=== PATIENT | male | born 1955 | race Caucasian/White ===

== ENCOUNTER 2021-04-08 08:00 | Outpatient (CLI) | payer MEDICARE ==
[2021-04-08 12:05] LABS: CALCIUM 9.2 mg/dL (8.5-10.3); CREATININE 0.9 mg/dL (0.6-1.2); POTASSIUM 4.7 mmol/L (3.5-5.0)
== END 2021-04-08 23:59 ==
LOC: LAB 08:00
PROVIDERS: ATTEND Nurse Practitioner Family
DX: R10.30 Lower abdominal pain, unspecified (principal); N52.9 Male erectile dysfunction, unspecified
CPT/HCPCS: 36415; 80048; 84153

== ENCOUNTER 2021-04-08 11:15 | Outpatient (CLI) | payer MEDICARE ==
[2021-04-08] MEDS ORDERED: IOVERSOL 320 100 ML VIAL IVP ONE ×2 (11:44→13:35)
[2021-04-08] MEDS ORDERED: IOPAMIDOL-300 50 ML VIAL ONE (11:44)
[2021-04-08] MEDS ORDERED: IOPAMIDOL-300 50 ML VIAL PO ONE (13:35)
--- NOTE | 2021-04-08 15:10 | CT Report ---
PROCEDURE: Abdomen/Pelvis W INDICATIONS: ABD PAIN CONTRAST: IV CONTRAST: Optiray 320 ml: 100 PO CONTRAST: Isovue 300 ml50 TECHNIQUE: After the administration of oral and intravenous contrast, 5 mm thick sections acquired from the diap hragms to the symphysis. 5 mm thick coronal and sagittal reformats were acquired. For radiation dos e reduction, the following was used: automated exposure control, adjustment of mA and/or kV accordin g to patient size. COMPARISON: December 21, 2008. FINDINGS: Inferior chest: No focal consolidation, pleural effusion, or pneumothorax. No cardiomegaly or perica rdial effusion. Gallbladder: The gallbladder is distended with a smooth thin wall. Biliary tree: No intra-or extrahepatic biliary ductal dilatation. Liver: Hepatic steatosis. 1.2 cm hypoattenuating lesion in right hepatic lobe, which may reflect a cy st. Spleen: Normal enhancement, size and morphology is seen. Pancreas: No contour deforming mass or inflammatory change. Adrenals: Normal size without masses. Kidneys/ureters: Normal size and morphology. No solid masses or hydronephrosis. Hypoattenuating, venita ical lesions are seen, measuring up to 1.6 cm, most consistent with cysts. Vasculature: No evidence of aneurysm or other significant vascular pathology. Lymphatic system: No pathologic enlargement by size criteria. GI/mesentery: No evidence of intestinal obstruction. Mild wall thickening with infiltrative change of the sigmoid colon (3-64), which may reflect acute diverticulitis versus epiploic appendagitis. Gisselle l appearance of the appendix. Peritoneum/Retroperitoneum: No free intraperitoneal gas or large collection. Urinary bladder: Not well distended. Pelvic organs: Prostatomegaly. Bones/soft tissues: Multifocal degenerative change of the osseous structures. Fat-containing right in guinal hernia with defect measuring approximately 1.2 cm. Fat-containing periumbilical hernia. IMPRESSION: 1.Mild acute sigmoid diverticulosis versus epiploic appendagitis. Reviewed by: Heron William MD on 04/08/2021 3:08 PM PST Approved by: Heron William MD on 04/08/2021 3:08 PM PST Station ID: [id number]
== END 2021-04-08 11:16 | disposition home or self-care (01) ==
LOC: LAB 11:15
PROVIDERS: ATTEND Nurse Practitioner Family
DX: R10.30 Lower abdominal pain, unspecified (principal); N52.9 Male erectile dysfunction, unspecified; R93.3 Abnormal findings on diagnostic imaging of other parts of digestive tract
CPT/HCPCS: 36415; 74177; 80048; 84153; Q9967

== ENCOUNTER 2021-07-24 09:33 | Outpatient (CLI) | payer MEDICARE ==
[2021-07-24] MEDS ORDERED: ALBUTEROL 1 PUFF INH STA (16:12)
== END 2021-07-24 09:34 | disposition home or self-care (01) ==
LOC: RT 09:33
PROVIDERS: ATTEND Nurse Practitioner Family
DX: J44.9 Chronic obstructive pulmonary disease, unspecified (principal)
CPT/HCPCS: 94060; 94727; 94729

== ENCOUNTER 2022-03-21 15:57 | Outpatient (CLI) | payer MEDICARE ==
--- NOTE | 2022-03-21 16:47 | XRAY Report ---
PROCEDURE: Lumbar Spine 2 View INDICATIONS: LOW BACK PAIN TECHNIQUE: 3 views of the lumbar spine were acquired. COMPARISON: CT abdomen pelvis 04/08/2021. FINDINGS: Bones: 5 [id number] vertebrae are present. Dextroscoliosis. Prominent vertebral body osteophyte s. Loss of intervertebral disc space height. Lower lumbar spine facet joint hypertrophy. No vertebral body compression fractures. No suspicious bony lesions. Soft tissues: Overlying bowel gas pattern is normal. No suspicious soft tissue calcifications. Venecia rial vascular calcifications. IMPRESSION: Severe lumbar spine DDD. Reviewed by: Rinku Lyon MD on 03/21/2022 4:45 PM PST Approved by: Rinku Lyon MD on 03/21/2022 4:45 PM PST Station ID: [id number]
--- NOTE | 2022-03-21 16:49 | XRAY Report ---
PROCEDURE: Thoracic Spine 2 View INDICATIONS: COMPRESSION FRACTURE OF THORACIC SPINE TECHNIQUE: 3 views of the thoracic spine were acquired. COMPARISON: CT abdomen pelvis 04/08/2021. FINDINGS: Bones: No fractures or dislocations. No suspicious bony lesions. 12 pairs of ribs are noted, and a ppear intact where visualized. Mild scoliosis. Small vertebral body osteophytes. No compression fract ure is identified. Soft tissues: No paravertebral stripe thickening. IMPRESSION: Mild to moderate degenerative change in the thoracic spine. Reviewed by: Rinku Lyon MD on 03/21/2022 4:48 PM PST Approved by: Rinku Lyon MD on 03/21/2022 4:48 PM PST Station ID: [id number]
--- NOTE | 2022-03-21 16:50 | XRAY Report ---
PROCEDURE: Cervical Spine 2 View INDICATIONS: NECK PAIN TECHNIQUE: 4 view(s) of the cervical spine were acquired. COMPARISON: Same day thoracic spine radiographs. FINDINGS: Bones: No fractures or dislocations to the T1 level. Small vertebral body osteophytes. Uncovertebra l joint hypertrophy. The lateral masses of C1 appear intact on the odontoid view. No suspicious bony lesions. Soft tissues: No prevertebral soft tissue swelling. IMPRESSION: Mild degenerative change in the cervical spine. Reviewed by: Rinku Lyon MD on 03/21/2022 4:49 PM [facility] Approved by: Rinku Lyon MD on 03/21/2022 4:49 PM [facility] Station ID: [id number]
== END 2022-03-21 15:58 | disposition home or self-care (01) ==
LOC: DI.S 15:57
PROVIDERS: ATTEND Nurse Practitioner Family
DX: M47.812 Spondylosis without myelopathy or radiculopathy, cervical region (principal); M47.814 Spondylosis without myelopathy or radiculopathy, thoracic region; M47.816 Spondylosis without myelopathy or radiculopathy, lumbar region; M51.36 Other intervertebral disc degeneration, lumbar region

== ENCOUNTER 2022-05-12 10:26 | Outpatient (CLI) | payer MEDICARE ==
--- NOTE | 2022-05-12 14:00 | CT Report ---
PROCEDURE: Low Dose Lung Cancer Screen INDICATIONS: SMOKER TECHNIQUE: Noncontrast low-dose axial images were acquired from the pulmonary apices to the posterior costophren ic angles. Multiplanar MIP reformats were then reconstructed. For radiation dose reduction, the follo wing was used: automated exposure control, adjustment of mA and/or kV according to patient size. COMPARISON: None. FINDINGS: Image quality: Excellent. Lungs and pleura: No focal consolidation or mass. No nodule or mass. No pneumothorax or pleural effu ever. Mediastinum: Heart size is normal. No pericardial effusion. No mediastinal adenopathy by size crit eria. Thoracic aorta and central pulmonary arteries are normal in size. Esophagus is normal in alexandra henry. No hiatal hernia. Bones and chest wall: No suspicious bony lesions. No vertebral body compression fractures. No axil ivy or supraclavicular adenopathy by size criteria. The thyroid is normal in size and there are no incidental findings. Degenerative changes of the thoracic spine. Abdomen: Visualized upper abdomen solid organs and bowel loops appear normal in the absence of contr ast. There is diverticulosis without evidence of acute diverticulitis. IMPRESSION: 1. No pulmonary nodules or masses. 2. Coronary artery disease. Lung RADS 1. No nodules or definitely benign nodules. Continue annual screening with low-dose chest C T. Reviewed by: gL Paulino on 05/12/2022 12:58 PM [facility] Approved by: Lg Paulino on 05/12/2022 12:58 PM [place] Station ID: [id number]
== END 2022-05-12 10:27 | disposition home or self-care (01) ==
LOC: DI 10:26
PROVIDERS: ATTEND Nurse Practitioner Family
DX: Z12.2 Encounter for screening for malignant neoplasm of respiratory organs (principal); F17.200 Nicotine dependence, unspecified, uncomplicated; I25.10 Atherosclerotic heart disease of native coronary artery without angina pectoris

== ENCOUNTER 2023-06-01 13:45 | Outpatient (CLI) | payer MEDICARE ==
--- NOTE | 2023-06-01 15:36 | CT Report ---
PROCEDURE: Lung Cancer Screen INDICATIONS: LUNG CA SCREENING TECHNIQUE: A CT scan of the chest was performed. Intravenous contrast media was not administered. Images were re corded and evaluated at appropriate window settings. Reformats: axial MIP of the chest, coronal and s agittal. For radiation dose reduction, the following was used: automated exposure control, adjustment of mA and/or kV according to patient size. COMPARISON: 05/12/2022. FINDINGS: Image quality: Excellent. Prior cancer history: None given Lungs and pleura: No pleural effusions. No pneumothorax. Pulmonary nodules are as follows (all descr ibed on series 4) 1. 3 mm pulmonary nodule, right lower lobe, current image 54 and previous image 161 No new or increasing pulmonary nodules. Mediastinum: Heart size is normal. No pericardial effusion. Mild aneurysmal dilatation of the ascendi ng aorta is stable, measuring 4.2 cm on current image 155/12 and measuring 4.2 cm on previous image 3 1/3. No mediastinal adenopathy by size criteria. Chest wall and lower neck: Thyroid is unremarkable. No axillary or supraclavicular adenopathy by size . Bones: No aggressive osseous abnormality. Upper Abdomen: Unremarkable. IMPRESSION: Stable 3 mm pulmonary nodule. 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 Lung RAD: 1 - Negative. Recommendation: Continue annual screening in 12 Months with LDCT Non-Lung Significant Findings: Aortic Aneurysm. Reviewed by: Roberto Souza MD on 06/01/2023 3:35 PM PDT Approved by: Roberto Souza MD on 06/01/2023 3:35 PM PDT Station ID: [id number]
== END 2023-06-01 13:46 | disposition home or self-care (01) ==
LOC: DI 13:45
PROVIDERS: ATTEND Nurse Practitioner Family
DX: Z12.2 Encounter for screening for malignant neoplasm of respiratory organs (principal); R91.1 Solitary pulmonary nodule; I71.21 Aneurysm of the ascending aorta, without rupture; F17.210 Nicotine dependence, cigarettes, uncomplicated